=== PATIENT | female | born 1965 | race Caucasian/White ===

== ENCOUNTER 2017-12-12 11:43 | Emergency (ER) | payer BC ==
[~2017-12-12] VITALS: Ht 162.6 cm; Wt 67.5 kg
[2017-12-12 11:53] VITALS: BP 154/88; PULSE 73; RESP 16; TEMP 99.1; O2SAT 97
[2017-12-12] MEDS ORDERED: BACL10TA PO (12:06)
[2017-12-12] MEDS ORDERED: ESTR1TAB PO (12:06)
[2017-12-12] MEDS ORDERED: PANT40TA3 PO (12:06)
[2017-12-12] MEDS ORDERED: TRIA37.5 (12:06)
[2017-12-12] MEDS ORDERED: PLEC3TAB (12:06)
--- NOTE | 2017-12-12 12:29 | PD ---
HPI . Cold symptoms Chief Complaint: Cold / Flu Symptoms Time Seen by Provider: 12:02 Travel History International Travel<30 days: No Contact w/Intl Traveler<30days: No Traveled to known affect area: No History of Present Illness HPI This patient presents with a one-week history of cold symptoms. She describes ear pain, sore throat, cough and subjective fevers and chills. She rates her discomfort at 8/10. Her symptoms have been unrelieved by DayQuil and NyQuil. PFSH Past Medical History Cardiovascular Problems: Yes (htn on meds) Diminished Hearing: No Gastrointestinal Disorders: Yes (IBS) GERD: Yes Hiatal Hernia: Yes Hypertension: Yes Respiratory: Yes (asthma) Influenza Vaccination: No ?: Not Past Surgical History Abdominal Surgery: Yes (Hernia) Cholecystectomy: Yes Hysterectomy: Yes Neurologic Surgery: Yes (Discectomy) Tonsillectomy: Yes Social History Alcohol Use: Yes (soc) Tobacco Use: No Substance Use: No Allergies-Medications (Allergen,Severity, Reaction): Coded Allergies: hydromorphone (Verified Allergy, Intermediate, skin rash, 12/12/17) lansoprazole (Verified Allergy, Intermediate, skin rash, 12/12/17) latex (Verified Allergy, Intermediate, skin rash, 12/12/17) aspirin (Verified Adverse Reaction, Intermediate, nausea, 12/12/17) Reported Meds & Prescriptions Reported Meds & Active Scripts Active Reported Trulance (Plecanatide) 3 Mg Tablet Baclofen 10 Mg Tab 10 Mg PO TID Estradiol 1 Mg Tab 1 Mg PO DAILY Pantoprazole (Pantoprazole Sodium) 40 Mg Tab 40 Mg PO DAILY Triamterene-Hydrochlorothiazide 37.5-25 Mg Tab 1 Tab DAILY Review of Systems Except as stated in HPI: all other systems reviewed are Neg General / Constitutional: Positive: Fever, Chills HENT: Positive: Sore Throat, Congestion, Earache Respiratory: Positive: Cough Physical Exam Narrative GENERAL: Awake and alert and in no acute distress. SKIN: Warm and dry. HEAD: Normocephalic/atraumatic. EYES: Pupils are equal. Extraocular movements are intact. No conjunctival injection or discharge noted. ENT: TMs are shiny hardy with good light reflexes bilaterally. Oropharynx has postnasal drip. NECK: Normal range of motion. No cervical lymphadenopathy. CARDIOVASCULAR: Regular rate and rhythm. Heart sounds are normal. RESPIRATORY: Nonlabored respirations. Lungs are clear with full air movement throughout. MUSCULOSKELETAL: Atraumatic. NEUROLOGICAL: Nonfocal. PSYCHIATRIC: Appropriate mood and affect. Data Data Last Documented VS Vital Signs Date Time Temp Pulse Resp B/P (MAP) Pulse Ox O2 Delivery O2 Flow Rate FiO2 12/12/17 11:53 99.1 73 16 154/88 (110) 97 MDM Medical Decision Making Medical Screen Exam Complete: Yes Emergency Medical Condition: Yes Differential Diagnosis Differential diagnosis includes but is not limited to influenza, upper respiratory infection, bronchitis, pneumonia Narrative Course This patient presents with a one-week history of cold symptoms. She does not have any concerning physical exam findings. She will be discharged to home with instructions in symptomatic care. Diagnosis Primary Impression: Upper respiratory infection Qualified Codes: J06.9 - Acute upper respiratory infection, unspecified Patient Instructions: General Instructions, Upper Respiratory Infection (DC) Additional Instructions: I recommend the use of a Neti Pot. You may use a nasal spray such as Afrin for up to 3 days as needed for nasal congestion. You may take an [id number] antihistamine such as Zyrtec, Aminah or Claritin as needed for runny secretions. You may take pseudoephedrine as needed for congestion. You will need to sign for this at the pharmacy. You may take plain Mucinex, 1200 mg twice a day as needed for thick secretions. You may take a cough syrup such as Delsym as needed for cough. Motrin as needed for fever and body aches. Throat lozenges/sprays as needed for sore throat. Warm salt water gargles for sore throat. Hot tea with lemon and honey also helps soothe a sore throat. Disposition: 01 DISCHARGE HOME Condition: Stable Elizabeth Moon MD Dec 12, 2017 12:29
== END 2017-12-12 13:01 | disposition home or self-care (01) ==
LOC: PHEFT 11:43
DX: J06.9 Acute upper respiratory infection, unspecified (principal); I10 Essential (primary) hypertension; J45.909 Unspecified asthma, uncomplicated; H92.09 Otalgia, unspecified ear
CPT/HCPCS: 99282